=== PATIENT | female | born 1940 | race Caucasian/White ===

== ENCOUNTER 2020-11-28 09:52 | Emergency (ER) | payer MEDICAID ==
[~2020-11-28] VITALS: Ht 141 cm; Wt 53.6 kg
[2020-11-28 09:53] VITALS: BP 174/79
--- NOTE | 2020-11-28 10:11 | NUR ---
80 Y/O BIB DAUGHTER C/O RIGHT FLANK PAIN RADIATING TO RIGHT LEG X3 DAYS. DENIES ANY DYSURIA, N/V/D. PAIN IS SHARP IN CHARACTER, AND IS INTERMITTENT. PATIENT DENIES ANY RECENT ACCIDENT OR INJURY. NO DEFORMITIES NOTED. DENIES ANY SOB/COUGH/FEVER.
--- NOTE | 2020-11-28 10:44 | NUR ---
Dr. Guzman is evaluating the patient at bedside.
[2020-11-28] MEDS ORDERED: MORPHINE SULFATE 2 MG/ML SYR IM ONE (10:50)
[2020-11-28] MEDS ORDERED: KETOROLAC 30 MG/ML VIAL IM ONE (10:50)
--- NOTE | 2020-11-28 11:19 | NUR ---
Patient taken to x-ray via gurney by Pinoccio.
--- NOTE | 2020-11-28 11:44 | NUR ---
Patient returned from x-ray.
[2020-11-28] MEDS ORDERED: DICL1GEL19 TP (12:33)
[2020-11-28] MEDS ORDERED: IBUP-1842 PO (12:33)
[2020-11-28] MEDS ORDERED: LID5T TP (12:33)
[2020-11-28] MEDS ORDERED: CYCL-654 PO (12:33)
--- NOTE | 2020-11-28 12:40 | NUR ---
Dr. Guzman is reevaluating the patient at bedside.
[2020-11-28 12:44] VITALS: BP 174/79
--- NOTE | 2020-11-28 12:45 | NUR ---
Patient discharged with v/s stable. Written and verbal after care instructions given and explained. Patient alert, oriented and verbalized understanding of instructions. Ambulatory with steady gait. All questions addressed prior to discharge. ID band removed. Patient advised to follow up with PMD. Rx of CYCLOBENZAPRINE, DICLOFENAC, IBUPROFEN, LIDOCAINE given. Patient educated on indication of medication including possible reaction and side effects. Opportunity to ask questions provided and answered.
== END 2020-11-28 12:45 | disposition home or self-care (01) ==
LOC: MED 09:52
DX: M54.41 Lumbago with sciatica, right side (principal); I10 Essential (primary) hypertension; Z79.899 Other long term (current) drug therapy
CPT/HCPCS: 72110; 72170; 96372; 99284; J1885; J2270

== ENCOUNTER 2020-12-16 15:50 | Emergency (ER) | payer MEDICAID ==
[~2020-12-16] VITALS: Ht 152.4 cm; Wt 54.4 kg
[~2020-12-16 15:50] MED LIST: CYCL-654 PO; DICL1GEL19 TP; IBUP-1842 PO; LID5T TP
[2020-12-16 16:00] VITALS: BP 225/80
--- NOTE | 2020-12-16 16:10 | NUR ---
PT ASSISTED TO BED 03 VIA W/C
--- NOTE | 2020-12-16 16:20 | NUR ---
80 y/o F BIB son with c/c R low back pain. Patient A&Ox4, wheelchair assisted and reports she was seen at [facility] approximately 3 weeks ago and discharged with Ibuprofen 400mg for sciatica pain. Patient states pain has not improved with Ibuprofen, and reports pain has been worsening. Patient reports worsening pain to where she is unable to eat/ambulate; states 10/10 R low back pain, shooting/sting/throbbing/intermittent, radiating down her right leg with numbness. +CMS +ROM of right leg/foot. Patient denies fever, chills, N/V/, SOB, dysuria. Patient also reports chest pain that is similar to body aches. athletic monitor in place. BP 207/70; VSS SpO2 99% on room air. Lung sounds CTA. Bed locked in lowest position, side rails x 1, call light in reach. PMH: HTN, HLD, sciatica Meds: Unable to obtain NKA Sx: Denies
--- NOTE | 2020-12-16 16:25 | NUR ---
Patient provided with a gown
[2020-12-16] MEDS ORDERED: METOPROLOL 25 MG TAB PO ONE (16:30)
[2020-12-16] MEDS ORDERED: KETOROLAC 60 MG/2 ML VIAL IM ONE (16:30)
--- NOTE | 2020-12-16 16:50 | NUR ---
# 15FR catheter with utilizing sterile technique. Immediate return of 150 ml clear/yellow urine noted. Urine sample collected and sent to lab. Pt tolerated procedure well.
--- NOTE | 2020-12-16 16:50 | NUR ---
Straight cath procedure performed with female RN puppet maker.
--- NOTE | 2020-12-16 17:10 | NUR ---
Dr. Powell is evaluating the patient at bedside.
--- NOTE | 2020-12-16 17:15 | NUR ---
BP 211/70; Dr. Powell made aware.
[2020-12-16] MEDS ORDERED: IBUP-2213 PO (17:18)
[2020-12-16] MEDS ORDERED: CIPR500T4 PO (17:18)
[2020-12-16] MEDS ORDERED: ACET-8386 PO (17:18)
[2020-12-16 17:38] VITALS: BP 211/70
--- NOTE | 2020-12-16 17:38 | NUR ---
Patient discharged with v/s stable. Written and verbal after care instructions given and explained. Patient alert, oriented and verbalized understanding of instructions. Wheel Chair Assisted with by caregiver. All questions addressed prior to discharge. ID band removed. Patient advised to follow up with PMD. Rx of Ibuprofen, Ciprofloxacin, Hydrocodone/Acetaminophen given. Patient educated on indication of medication including possible reaction and side effects. Opportunity to ask questions provided and answered.
== END 2020-12-16 17:38 | disposition home or self-care (01) ==
LOC: MED 15:50
DX: N39.0 Urinary tract infection, site not specified (principal); I10 Essential (primary) hypertension; Z79.899 Other long term (current) drug therapy
CPT/HCPCS: 81002; 96372; 99283; J1885

== ENCOUNTER 2022-09-01 12:49 | Emergency (ER) | payer MEDICAID, OTHER ==
[~2022-09-01] VITALS: Ht 140.2 cm; Wt 58.3 kg
[~2022-09-01 12:49] MED LIST changes: +ACET-8905 PO; +CIPR500T4 PO; +IBUP-2213 PO
[2022-09-01 13:04] VITALS: BP 182/61
--- NOTE | 2022-09-01 13:14 | NUR ---
PT AMB TO BED 9 WITH GRANDSON.
--- NOTE | 2022-09-01 13:15 | NUR ---
O2 SAT 96 % AT THIS TIME.
--- NOTE | 2022-09-01 13:37 | NUR ---
ASSUMED PATIENT CARE, NURSING ASSESSMENT COMPLETED.
[2022-09-01] MEDS ORDERED: LOSA100T2 PO (13:41)
[2022-09-01] MEDS ORDERED: AMLO10TA PO (13:41)
[2022-09-01] MEDS ORDERED: METO25TA PO (13:41)
[2022-09-01] MEDS ORDERED: ESCI5TAB PO (13:41)
[2022-09-01] MEDS ORDERED: SIMV-372 PO (13:41)
[2022-09-01 14:19] LABS: BASOPHILS % (AUTO) 0.6 % (0.0-2.0); EOSINOPHILS # (AUTO) 0.3 K/uL (0-0.4); EOSINOPHILS % (AUTO) 3.7 % (0.0-4.0); HEMATOCRIT 39.6 % (36-48); HEMOGLOBIN 13.1 g/dL (12.0-16.0); LYMPHOCYTES # (AUTO) 2.5 K/uL (2.5-16.5); MEAN CORPUSCULAR HEMOGLOBIN 29 pg (27-31); MEAN CORPUSCULAR HGB CONC 33 g/dL (33-37); MONOCYTES % (AUTO) 12.2 % (1.7-9.3); NEUTROPHILS # (AUTO) 4.2 K/uL (1.8-7.7); NEUTROPHILS % (AUTO) 52.5 % (42.2-75.2); PLATELET COUNT (AUTO) 337 K/uL (140-450); RED BLOOD CELL COUNT(AUTO) 4.61 MIL/uL (4.20-5.40); RED CELL DISTRIBUTION WIDTH 13.8 % (11.6-13.7); WHITE BLOOD COUNT (AUTO) 8.1 K/uL (4.8-10.8)
[2022-09-01 14:25] LABS: ALBUMIN 4.4 g/dL (3.4-5.0); ANION GAP 12.6 (8-16); ASPARTATE AMINOTRANSFERASE 22 U/L (15-37); CARBON DIOXIDE 25.2 mmol/L (21-32); CHLORIDE 97 mmol/L (98-107); CREATININE 0.7 mg/dL (0.6-1.3); GLUCOSE 116 mg/dL (74-106); POTASSIUM 3.8 mmol/L (3.5-5.1); SODIUM SERUM 131 mmol/L (136-145); TOTAL BILIRUBIN 0.2 mg/dL (0.0-1.0); UREA NITROGEN, BLOOD 21 mg/dL (7-18)
[2022-09-01 15:43] VITALS: BP 160/62
--- NOTE | 2022-09-01 17:28 | NUR ---
Patient discharged with v/s stable. Written and verbal after care instructions ABOUT SHORTNESS OF BREATH given and explained. Patient verbalized understanding. Ambulatory with steady gait. All questions addressed prior to discharge. Advised to follow up with PMD.
== END 2022-09-01 17:28 | disposition home or self-care (01) ==
LOC: MED 12:49
DX: R06.00 Dyspnea, unspecified (principal); F41.9 Anxiety disorder, unspecified; F32.9 Major depressive disorder, single episode, unspecified; R06.02 Shortness of breath; I10 Essential (primary) hypertension; E78.5 Hyperlipidemia, unspecified; M19.90 Unspecified osteoarthritis, unspecified site; Z98.890 Other specified postprocedural states; Z90.710 Acquired absence of both cervix and uterus; Z79.899 Other long term (current) drug therapy
CPT/HCPCS: 36415; 71045; 80053; 83880; 84484; 85025; 93005; 99285; Q0092

== ENCOUNTER 2023-06-05 00:30 | Inpatient (IN) | payer OTHER ==
[~2023-06-05] VITALS: Ht 134.6 cm; Wt 57.2 kg
[~2023-06-05 00:30] MED LIST changes: -ACET-8905 PO; +AMLO10TA PO; -CIPR500T4 PO; -CYCL-654 PO; -DICL1GEL19 TP; +ESCI5TAB PO; -IBUP-1842 PO; -IBUP-2213 PO; -LID5T TP; +LOSA-272 PO; +METO25TA PO; +SIMV-372 PO
[2023-06-05 00:32] VITALS: BP 169/83; PULSE 100; RESP 16; TEMP 99.5; O2SAT 93
[2023-06-05] MEDS ORDERED: cefTRIAXone 1,000 MG VIAL ONE (01:02)
[2023-06-05 01:49] LABS: BASOPHILS # (AUTO) 0.1 K/uL (0.00-0.22); BASOPHILS % (AUTO) 0.6 % (0.0-2.0); EOSINOPHILS # (AUTO) 0.1 K/uL (0-0.4); EOSINOPHILS % (AUTO) 0.8 % (0.0-4.0); HEMOGLOBIN 12.6 g/dL (12.0-16.0); LYMPHOCYTES % (AUTO) 10.2 % (20.5-51.1); MEAN CORPUSCULAR HEMOGLOBIN 28 pg (27-31); MEAN CORPUSCULAR HGB CONC 33 g/dL (33-37); MONOCYTES # (AUTO) 1.3 K/uL (0.8-1.0); MONOCYTES % (AUTO) 13.9 % (1.7-9.3); NEUTROPHILS # (AUTO) 7.2 K/uL (1.8-7.7); NEUTROPHILS % (AUTO) 74.5 % (42.2-75.2); PLATELET COUNT (AUTO) 288 K/uL (140-450); RED BLOOD CELL COUNT(AUTO) 4.47 MIL/uL (4.20-5.40); RED CELL DISTRIBUTION WIDTH 16.6 % (11.6-13.7); WHITE BLOOD COUNT (AUTO) 9.6 K/uL (4.8-10.8)
[2023-06-05 02:26] LABS: ANION GAP 16.2 (8-16); CHLORIDE 96 mmol/L (98-107); CREATININE 0.7 mg/dL (0.6-1.3); GLUCOSE 127 mg/dL (74-106); POTASSIUM 3.2 mmol/L (3.5-5.1); SODIUM SERUM 131 mmol/L (136-145); UREA NITROGEN, BLOOD 15 mg/dL (7-18)
[2023-06-05] MEDS ORDERED: ONDANSETRON 4 MG/2 ML VIAL IVP PRN (02:40)
[2023-06-05] MEDS ORDERED: MORPHINE SULFATE 2 MG/ML SYR IVP PRN (02:40)
[2023-06-05] MEDS ORDERED: ACETAMINOPHEN 325 MG TAB PO PRN (02:40)
[2023-06-05 02:44] LABS: LACTIC ACID 3.5 mmol/L (0.4-2.0)
[2023-06-05 02:56] LABS: CALCIUM 8.6 mg/dL (8.5-10.1)
[2023-06-05] MEDS ORDERED: MIRT-120 PO (03:04)
[2023-06-05] MEDS ORDERED: SIMV-372 PO (03:04)
[2023-06-05] MEDS ORDERED: METO-624 PO (03:04)
[2023-06-05] MEDS ORDERED: AMLO10TA PO (03:04)
[2023-06-05] MEDS ORDERED: FAMO-90 PO (03:04)
[2023-06-05] MEDS ORDERED: LOSA-272 PO (03:04)
[2023-06-05 03:05] LABS: FLU A ANTIGEN negative (NEGATIVE); FLU B ANTIGEN negative (NEGATIVE)
[2023-06-05 03:10] LABS: RSV Negative (NEGATIVE)
[2023-06-05] MEDS ORDERED: hydrALAZINE 25 MG TAB PO PRN ×2 (05:30→09:05)
[2023-06-05] MEDS: NACL 0.9% 1,000 ML IV SCH (06:00)
[2023-06-05] MEDS: amLODIPine 5 MG TAB PO SCH (07:03)
[2023-06-05] MEDS ORDERED: LOSARTAN 50 MG TAB PO SCH (09:00)
[2023-06-05] MEDS ORDERED: CRUSHER, PILL MC ONE (09:30)
[2023-06-05] MEDS: ESCITALOPRAM 20 MG TAB PO SCH (09:32)
[2023-06-05] MEDS: METOPROLOL 50 MG TAB PO SCH ×2 (09:32→20:46)
[2023-06-05] MEDS ORDERED: SIMVASTATIN 40 MG TAB ONE (20:42)
[2023-06-05] MEDS ORDERED: MIRTAZAPINE 15 MG TAB PO SCH (21:00)
[2023-06-05] MEDS ORDERED: SIMVASTATIN 20 MG TAB PO SCH ×2 (21:00)
[2023-06-06] MEDS ORDERED: hydrALAZINE 10 MG TAB ONE (00:45)
[2023-06-06] MEDS: NACL 0.9% 1,000 ML IV SCH (02:40)
[2023-06-06] MEDS ORDERED: cefTRIAXone 1,000 MG VIAL ONE (06:02)
[2023-06-06 07:30] VITALS: O2SAT 98
[2023-06-06 08:23] LABS: BASOPHILS % (AUTO) 0.4 % (0.0-2.0); EOSINOPHILS % (AUTO) 0.2 % (0.0-4.0); HEMATOCRIT 37.5 % (36-48); HEMOGLOBIN 12.6 g/dL (12.0-16.0); LYMPHOCYTES # (AUTO) 1.5 K/uL (2.5-16.5); LYMPHOCYTES % (AUTO) 26.1 % (20.5-51.1); MEAN CORPUSCULAR HEMOGLOBIN 29 pg (27-31); MEAN CORPUSCULAR HGB CONC 34 g/dL (33-37); MEAN CORPUSCULAR VOLUME 84.9 fL (80-94); MONOCYTES # (AUTO) 1.3 K/uL (0.8-1.0); MONOCYTES % (AUTO) 22.7 % (1.7-9.3); NEUTROPHILS # (AUTO) 2.9 K/uL (1.8-7.7); NEUTROPHILS % (AUTO) 50.6 % (42.2-75.2); PLATELET COUNT (AUTO) 288 K/uL (140-450); RED BLOOD CELL COUNT(AUTO) 4.42 MIL/uL (4.20-5.40); RED CELL DISTRIBUTION WIDTH 16.3 % (11.6-13.7); WHITE BLOOD COUNT (AUTO) 5.8 K/uL (4.8-10.8)
[2023-06-06 08:29] LABS: ALANINE AMINOTRANSFERASE 23 U/L (12-78); ALBUMIN 2.6 g/dL (3.4-5.0); ALKALINE PHOSPHATASE 66 U/L (50-136); ANION GAP 11.2 (8-16); ASPARTATE AMINOTRANSFERASE 21 U/L (15-37); CALCIUM 8.4 mg/dL (8.5-10.1); CARBON DIOXIDE 24.7 mmol/L (21-32); CHLORIDE 99 mmol/L (98-107); CREATININE 0.5 mg/dL (0.6-1.3); GLUCOSE 110 mg/dL (74-106); MAGNESIUM 1.8 mg/dL (1.8-2.4); SODIUM SERUM 132 mmol/L (136-145); TOTAL BILIRUBIN 0.2 mg/dL (0.0-1.0); TOTAL PROTEIN, SERUM 6.4 g/dL (6.4-8.2); UREA NITROGEN, BLOOD 16 mg/dL (7-18)
[2023-06-06 08:31] LABS: POTASSIUM 2.9 mmol/L (3.5-5.1)
[2023-06-06] MEDS ORDERED: FAMOTIDINE 20 MG TAB PO SCH (09:00)
[2023-06-06] MEDS ORDERED: METOPROLOL 25 MG TAB PO SCH (09:00)
[2023-06-06] MEDS ORDERED: LOSARTAN 50 MG TAB PO SCH (09:00)
[2023-06-06] MEDS ORDERED: amLODIPine 5 MG TAB PO SCH (09:00)
[2023-06-06] MEDS: METOPROLOL 50 MG TAB PO SCH (09:42)
[2023-06-06] MEDS: amLODIPine 5 MG TAB PO SCH (09:43)
[2023-06-06] MEDS: ESCITALOPRAM 20 MG TAB PO SCH (09:51)
[2023-06-06] MEDS ORDERED: MUC600 PO (15:03)
[2023-06-06] MEDS ORDERED: METOPROLOL 25 MG TAB ONE (15:16)
[2023-06-06] MEDS ORDERED: SIMVASTATIN 40 MG TAB ONE (15:16)
[2023-06-06 18:18] VITALS: BP 165/62; PULSE 81; RESP 16; TEMP 98.1; O2SAT 81
== END 2023-06-06 18:20 | disposition home or self-care (01) | DRG 243 ==
LOC: MED 00:30 → MTU 02:43
PROVIDERS: ADMIT Hospitalist; ATTEND Hospitalist
DX: K21.9 Gastro-esophageal reflux disease without esophagitis (principal); R65.10 Systemic inflammatory response syndrome (SIRS) of non-infectious origin without acute organ dysfunction; E44.0 Moderate protein-calorie malnutrition; E87.1 Hypo-osmolality and hyponatremia; E87.6 Hypokalemia; F41.9 Anxiety disorder, unspecified; I10 Essential (primary) hypertension; Z20.822 Contact with and (suspected) exposure to COVID-19; Z88.8 Allergy status to other drugs, medicaments and biological substances; Z79.899 Other long term (current) drug therapy
CPT/HCPCS: 36415; 71045; 80048; 80053; 83605; 83735; 83880; 84484; 85025; 87040; 87420; 93005; 96365; 99285; J0696; J2270; J2405; J7060; Q0092

== ENCOUNTER 2023-12-31 10:26 | Day surgery (SDC) | payer OTHER ==
[~2023-12-31] VITALS: Ht 149.9 cm; Wt 52.2 kg
[~2023-12-31 10:26] MED LIST changes: +FAMO-90 PO; +METO-624 PO; +MIRT-120 PO; +MUC600 PO
[2023-12-31] MEDS ORDERED: MIDAZOLAM 2 MG/2 ML VIAL ONE (13:07)
[2023-12-31] MEDS ORDERED: fentaNYL citrate 0.05 MG/ML VIAL ONE (13:07)
[2023-12-31] MEDS: MIDAZOLAM 2 MG/2 ML VIAL IVP ONE (13:32)
== END 2023-12-31 15:21 | disposition home or self-care (01) ==
LOC: MDS 10:26 → MMU 12:03 → MDS 15:21
PROVIDERS: ATTEND Internal Medicine Gastroenterology
DX: R10.13 Epigastric pain (principal); K20.90 Esophagitis, unspecified without bleeding; I10 Essential (primary) hypertension; M81.0 Age-related osteoporosis without current pathological fracture; K44.9 Diaphragmatic hernia without obstruction or gangrene; E78.00 Pure hypercholesterolemia, unspecified; F32.A Depression, unspecified; Z79.899 Other long term (current) drug therapy
CPT/HCPCS: 36415; 43239; 86677; J2250; J3010